=== PATIENT | female | born 1965 | race Caucasian/White ===

== ENCOUNTER 2017-12-10 05:17 | Inpatient (IN) | payer OTHER ==
[~2017-12-10] VITALS: Ht 175.3 cm; Wt 78.7 kg
[2017-12-10] MEDS ORDERED: BUDE10.2 INH (05:26)
[2017-12-10 06:14] LABS: BASOPHILS # (AUTO) 0.06 x10^3/uL (0-0.1); BASOPHILS % (AUTO) 1 % (0-1); EOSINOPHILS # (AUTO) 0.21 x10^3/uL (0-0.4); EOSINOPHILS % (AUTO) 2 % (1-7); LYMPHOCYTES # (AUTO) 2.38 x10^3/uL (1-3.4); LYMPHOCYTES % (AUTO) 23 % (22-44); MD NO; MEAN CORPUSCULAR HEMOGLOBIN 32.5 pg (27.0-34.8); MEAN CORPUSCULAR HGB CONC 33.3 g/dL (32.4-35.8); MEAN CORPUSCULAR VOLUME 97.8 fL (80-100); MEAN PLATELET VOLUME 8.7 fL (7.4-10.4); MONOCYTES # (AUTO) 0.79 x10^3/uL (0.2-0.8); MONOCYTES % (AUTO) 8 % (2-9); NEUTROPHILS # (AUTO) 7.08 x10^3/uL (1.8-6.8); NEUTROPHILS % (AUTO) 67 % (42-75); PLATELET COUNT 334 x10^3/uL (130-400); RED BLOOD COUNT 4.34 x10^6/uL (3.82-5.3); RED CELL DISTRIBUTION WIDTH 13.8 % (9.6-15.2)
[2017-12-10 06:22] LABS: CHLORIDE 108 mmol/L (98-107)
[2017-12-10 06:28] LABS: ALBUMIN 3.9 g/dL (3.4-5.0); ANION GAP 7 mmol/L (5-15); CREATININE 0.86 mg/dL (0.55-1.02)
[2017-12-10 06:52] LABS: TROPONIN I 0.357 ng/mL (0.000-0.045)
[2017-12-10] MEDS ORDERED: ASPIRIN 81 MG TABLET CHEW PO ONE (07:00)
[2017-12-10] MEDS ORDERED: MORPHINE SULFATE 4 MG/ML, 1ML IVPush PRN (07:00)
[2017-12-10] MEDS ORDERED: ASPIRIN 81 MG TABLET CHEW ONE (07:17)
[2017-12-10] MEDS ORDERED: OMNIPAQUE 350 MG/ML, 100ML BOTTLE ONE (07:36)
[2017-12-10] MEDS ORDERED: MIDAZOLAM 1 MG/ML, 5ML ONE (07:38)
[2017-12-10] MEDS ORDERED: FENTANYL PF 100 MCG/2ML ONE (07:38)
[2017-12-10] MEDS ORDERED: TICAGRELOR 90 MG TABLET ONE (07:39)
[2017-12-10] MEDS ORDERED: NITROGLYCERIN 5 MG/ML, 10ML ONE (07:39)
[2017-12-10] MEDS ORDERED: VERAPAMIL 2.5 MG/ML, 2ML ONE (07:39)
[2017-12-10] MEDS ORDERED: BIVALIRUDIN 250 MG ONE (07:39)
[2017-12-10] MEDS ORDERED: HEPARIN 1,000 UNITS/ML, 10ML ONE (07:39)
[2017-12-10] MEDS ORDERED: LIDOCAINE-MPF 2% ,5ML ONE (07:39)
[2017-12-10] MEDS ORDERED: FUROSEMIDE 40 MG/4 ML ONE (08:28)
[2017-12-10] MEDS: FUROSEMIDE 40 MG/4 ML IV SCH (08:30)
[2017-12-10] MEDS ORDERED: DOCUSATE 100 MG CAPSULE PO PRN (09:00)
[2017-12-10] MEDS ORDERED: POLYETHYLENE GLYCOL 17 GM PACKET PO PRN (09:00)
[2017-12-10] MEDS: CARVEDILOL 3.125 MG TABLET PO SCH ×2 (09:00→17:48)
[2017-12-10] MEDS ORDERED: ONDANSETRON 2MG/ML, 2ML IVPush PRN ×2 (09:30→20:28)
[2017-12-10] MEDS ORDERED: BISACODYL 10 MG SUPP PR PRN (09:30)
[2017-12-10] MEDS ORDERED: hydrALAzine 20 MG/ML, 1ML IVPush PRN (09:30)
[2017-12-10] MEDS: LOSARTAN 25MG TABLET PO SCH (09:40)
[2017-12-10 12:43] LABS: AMPHETAMINE SCREEN, URINE Positive (Negative); BARBITURATE SCREEN, URINE Negative (Negative); BENZODIAZEPINE SCREEN, URINE Positive (Negative); CANNABINOID SCREEN, URINE Negative (Negative); COCAINE SCREEN, URINE Negative (Negative); METHADONE SCREEN, URINE Negative (Negative); OPIATE SCREEN, URINE Negative (Negative)
[2017-12-10] MEDS: ENOXAPARIN 40 MG/0.4 ML SQ SCH (16:18)
[2017-12-10] MEDS: ACETAMINOPHEN 325 MG TABLET PO PRN ×3 (17:46→22:43)
[2017-12-10] MEDS ORDERED: ONDANSETRON ODT 4 MG PO PRN (20:30)
[2017-12-10] MEDS: FAMOTIDINE 20 MG TABLET PO SCH (20:35)
[2017-12-10 21:51] VITALS: BP 115/78
[2017-12-11 01:00] VITALS: BP 105/68
[2017-12-11 05:36] LABS: BASOPHILS # (AUTO) 0.06 x10^3/uL (0-0.1); BASOPHILS % (AUTO) 1 % (0-1); EOSINOPHILS # (AUTO) 0.09 x10^3/uL (0-0.4); EOSINOPHILS % (AUTO) 1 % (1-7); LYMPHOCYTES # (AUTO) 2.84 x10^3/uL (1-3.4); LYMPHOCYTES % (AUTO) 21 % (22-44); MD NO; MEAN CORPUSCULAR HEMOGLOBIN 32.6 pg (27.0-34.8); MEAN CORPUSCULAR HGB CONC 33.5 g/dL (32.4-35.8); MEAN CORPUSCULAR VOLUME 97.4 fL (80-100); MONOCYTES # (AUTO) 0.99 x10^3/uL (0.2-0.8); MONOCYTES % (AUTO) 7 % (2-9); NEUTROPHILS # (AUTO) 9.71 x10^3/uL (1.8-6.8); NEUTROPHILS % (AUTO) 71 % (42-75); PLATELET COUNT 298 x10^3/uL (130-400); RED BLOOD COUNT 4.19 x10^6/uL (3.82-5.3); RED CELL DISTRIBUTION WIDTH 13.9 % (9.6-15.2)
[2017-12-11] MEDS: CARVEDILOL 3.125 MG TABLET PO SCH ×2 (06:31→16:08)
[2017-12-11 06:38] LABS: ALBUMIN 3.4 g/dL (3.4-5.0); ANION GAP 7 mmol/L (5-15); CALCIUM 9.2 mg/dL (8.5-10.1); CHLORIDE 105 mmol/L (98-107)
[2017-12-11 06:44] LABS: ALANINE AMINOTRANSFERASE 22 U/L (12-78); ALKALINE PHOSPHATASE 113 U/L (45-117); BILIRUBIN,TOTAL 0.3 mg/dL (0.2-1.0); CHOL/HDL RATIO 3.2; CHOLESTEROL, TOTAL 165 mg/dL (140-239); CREATININE 0.93 mg/dL (0.55-1.02); HDL CHOL % 32 % (28-40); HDL CHOLESTEROL (DIRECT) 52 mg/dL (40-60); LDL CHOLESTEROL,CALCULATED 96 mg/dL (54-169); LDL/HDL RATIO 1.8 (0.5-3.0); TOTAL PROTEIN 7.1 g/dL (6.4-8.2); TRIGLYCERIDES 85 mg/dL (50-200); VLDL CHOLESTEROL 17 mg/dL (0-25)
[2017-12-11] MEDS: LOSARTAN 25MG TABLET PO SCH (08:17)
[2017-12-11] MEDS: FAMOTIDINE 20 MG TABLET PO SCH ×2 (08:17→21:55)
[2017-12-11] MEDS: FUROSEMIDE 40 MG/4 ML IV SCH (08:18)
[2017-12-11 09:43] VITALS: BP 111/74
[2017-12-11 15:30] VITALS: BP 107/69
[2017-12-11] MEDS: ENOXAPARIN 40 MG/0.4 ML SQ SCH (16:08)
[2017-12-11 19:23] VITALS: BP 99/65
[2017-12-12 00:22] VITALS: BP 102/69
[2017-12-12] MEDS ORDERED: IBUPROFEN 200 MG TABLET PO ONE (00:30)
[2017-12-12] MEDS: ACETAMINOPHEN 325 MG TABLET PO PRN (01:56)
[2017-12-12] MEDS: CARVEDILOL 3.125 MG TABLET PO SCH (06:24)
[2017-12-12 07:52] VITALS: BP 110/75
[2017-12-12] MEDS: FAMOTIDINE 20 MG TABLET PO SCH (08:10)
[2017-12-12] MEDS: LOSARTAN 25MG TABLET PO SCH (08:11)
[2017-12-12] MEDS: FUROSEMIDE 40 MG/4 ML IV SCH (08:11)
[2017-12-12 14:55] VITALS: BP 95/62
[2017-12-12] MEDS: ENOXAPARIN 40 MG/0.4 ML SQ SCH (16:00)
[2017-12-12] MEDS ORDERED: LOSA25TA2 PO (16:22)
[2017-12-12] MEDS ORDERED: CARV3.1212 PO (16:22)
== END 2017-12-12 18:10 | disposition home or self-care (01) | DRG 286 ==
LOC: ED 08:00 → EDIP 08:04 → CCU 08:37 → 5SO 21:45
PROVIDERS: ADMIT Internal Medicine; ATTEND Internal Medicine
PROC: 4A023N7 Measurement of Cardiac Sampling and Pressure, Left Heart, Percutaneous Approach (ICD-10-PCS; principal; 2017-12-10)
PROC: B2111ZZ Fluoroscopy of Multiple Coronary Arteries using Low Osmolar Contrast (ICD-10-PCS; 2017-12-10)
PROC: B2151ZZ Fluoroscopy of Left Heart using Low Osmolar Contrast (ICD-10-PCS; 2017-12-10)
DX: I25.10 Atherosclerotic heart disease of native coronary artery without angina pectoris (principal); I50.21 Acute systolic (congestive) heart failure; I47.2 Ventricular tachycardia; I42.9 Cardiomyopathy, unspecified; I11.0 Hypertensive heart disease with heart failure; F15.10 Other stimulant abuse, uncomplicated; J45.909 Unspecified asthma, uncomplicated; F32.9 Major depressive disorder, single episode, unspecified; M19.90 Unspecified osteoarthritis, unspecified site; Z87.01 Personal history of pneumonia (recurrent); Z87.891 Personal history of nicotine dependence
CPT/HCPCS: 36415; 71045; 71275; 80048; 80053; 80061; 80307; 82040; 83735; 84484; 85025; 85379; 87081; 93005; 93306; 93458; 99156; 99291; C1760; C1894; J0583; J1644; J1650; J1940; J2250; J3010; J3490; Q9967; J7512

== ENCOUNTER 2017-12-14 02:09 | Emergency (ER) | payer OTHER ==
[~2017-12-14] VITALS: Ht 175.3 cm; Wt 79.4 kg
[~2017-12-14 02:09] MED LIST: BUDE10.2 INH; CARV3.1212 PO; LOSA25TA2 PO
[2017-12-14] MEDS ORDERED: FUROSEMIDE 20 MG TABLET ONE (02:47)
[2017-12-14] MEDS ORDERED: POTASSIUM CHLORIDE 20 MEQ TAB.ER.PRT ONE (02:47)
[2017-12-14] MEDS ORDERED: POTASSIUM CHLORIDE 20 MEQ TAB.ER.PRT PO ONE (03:00)
[2017-12-14 03:24] VITALS: BP 114/80
[2017-12-14] MEDS ORDERED: FUROSEMIDE 20 MG TABLET PO SCH (09:00)
== END 2017-12-14 03:33 | disposition home or self-care (01) ==
LOC: ED 03:31
DX: I11.0 Hypertensive heart disease with heart failure (principal); I50.9 Heart failure, unspecified; Z76.0 Encounter for issue of repeat prescription; M19.90 Unspecified osteoarthritis, unspecified site; J45.909 Unspecified asthma, uncomplicated
CPT/HCPCS: 93005; 99283

== ENCOUNTER 2017-12-20 04:33 | Emergency (ER) | payer OTHER ==
[~2017-12-20] VITALS: Ht 175.3 cm; Wt 81.3 kg
[2017-12-20 04:36] VITALS: BP 113/78
== END 2017-12-20 06:17 | disposition home or self-care (01) ==
LOC: ED 05:49
DX: M70.21 Olecranon bursitis, right elbow (principal); Z87.891 Personal history of nicotine dependence
CPT/HCPCS: 99284

== ENCOUNTER 2017-12-21 14:36 | Emergency (ER) | payer OTHER ==
[~2017-12-21] VITALS: Ht 175.3 cm; Wt 82.6 kg
[2017-12-21 14:43] VITALS: BP 102/67
[2017-12-21] MEDS ORDERED: CLINDAMYCIN 150 MG/ML, 6ML IM ONE (15:30)
== END 2017-12-21 16:29 | disposition home or self-care (01) ==
LOC: ED 16:00
DX: M70.21 Olecranon bursitis, right elbow (principal); M19.90 Unspecified osteoarthritis, unspecified site; J45.909 Unspecified asthma, uncomplicated; I50.9 Heart failure, unspecified; I11.0 Hypertensive heart disease with heart failure
CPT/HCPCS: 96372; 99283

== ENCOUNTER 2018-02-27 11:40 | Inpatient (IN) | payer OTHER ==
[~2018-02-27] VITALS: Ht 175.3 cm; Wt 77.9 kg
[2018-02-27] MEDS ORDERED: ASPIRIN 81 MG TABLET CHEW PO ONE (12:00)
[2018-02-27 12:32] LABS: BASOPHILS # (AUTO) 0.03 x10^3/uL (0-0.1); BASOPHILS % (AUTO) 0 % (0-1); EOSINOPHILS # (AUTO) 0.22 x10^3/uL (0-0.4); EOSINOPHILS % (AUTO) 3 % (1-7); LYMPHOCYTES # (AUTO) 1.79 x10^3/uL (1-3.4); LYMPHOCYTES % (AUTO) 23 % (22-44); MD NO; MEAN CORPUSCULAR HEMOGLOBIN 32.6 pg (27.0-34.8); MEAN CORPUSCULAR HGB CONC 34.1 g/dL (32.4-35.8); MEAN CORPUSCULAR VOLUME 95.3 fL (80-100); MEAN PLATELET VOLUME 8.6 fL (7.4-10.4); MONOCYTES # (AUTO) 0.48 x10^3/uL (0.2-0.8); MONOCYTES % (AUTO) 6 % (2-9); NEUTROPHILS # (AUTO) 5.16 x10^3/uL (1.8-6.8); NEUTROPHILS % (AUTO) 67 % (42-75); PLATELET COUNT 333 x10^3/uL (130-400); RED BLOOD COUNT 4.29 x10^6/uL (3.82-5.3); RED CELL DISTRIBUTION WIDTH 15.1 % (9.6-15.2)
[2018-02-27 12:43] LABS: ANION GAP 8 mmol/L (5-15); CHLORIDE 101 mmol/L (98-107)
[2018-02-27 12:48] LABS: ALANINE AMINOTRANSFERASE 25 U/L (12-78); ALKALINE PHOSPHATASE 100 U/L (45-117); BILIRUBIN,TOTAL 0.4 mg/dL (0.2-1.0); TOTAL PROTEIN 7.9 g/dL (6.4-8.2); TROPONIN I 0.039 ng/mL (0.000-0.045)
[2018-02-27] MEDS ORDERED: TRIA1TAB5 PO (12:51)
[2018-02-27] MEDS ORDERED: ASPIRIN 81 MG TABLET CHEW ONE (12:54)
[2018-02-27 15:11] VITALS: BP 127/85
[2018-02-27 15:59] LABS: FREE T4 (FREE THYROXINE) 1.1 ng/dL (0.76-1.46); THYROID STIMULATING HORMONE 1.12 mIU/L (0.358-3.740)
[2018-02-27] MEDS ORDERED: ONDANSETRON ODT 4 MG PO PRN (16:00)
[2018-02-27] MEDS ORDERED: ACETAMINOPHEN 325 MG TABLET PO PRN (16:00)
[2018-02-27] MEDS ORDERED: HYDROcodone/APAP 5/325 TABLET PO PRN (16:00)
[2018-02-27] MEDS ORDERED: ZOLPIDEM 5MG TABLET PO PRN (16:00)
[2018-02-27] MEDS ORDERED: LORazepam 1MG TABLET PO PRN (16:00)
[2018-02-27] MEDS ORDERED: BISACODYL 10 MG SUPP PR PRN (16:00)
[2018-02-27] MEDS ORDERED: ONDANSETRON 2MG/ML, 2ML IVPush PRN (16:00)
[2018-02-27 18:26] LABS: TROPONIN I 0.038 ng/mL (0.000-0.045)
[2018-02-27 19:43] VITALS: BP 107/71
[2018-02-27] MEDS: ENOXAPARIN 30 MG/0.3 ML SQ SCH (21:01)
[2018-02-27] MEDS: SODIUM CHLORIDE FLUSH 10ML SYR IVF SCH (21:07)
[2018-02-28 00:10] LABS: MICROSCOPIC NOT IND
[2018-02-28 00:13] LABS: CULTURE INDICATED? NO
[2018-02-28 00:21] LABS: AMPHETAMINE SCREEN, URINE Negative (Negative); BARBITURATE SCREEN, URINE Negative (Negative); BENZODIAZEPINE SCREEN, URINE Negative (Negative); CANNABINOID SCREEN, URINE Negative (Negative); COCAINE SCREEN, URINE Negative (Negative); METHADONE SCREEN, URINE Negative (Negative); OPIATE SCREEN, URINE Negative (Negative)
[2018-02-28 00:49] LABS: TROPONIN I 0.039 ng/mL (0.000-0.045)
[2018-02-28 02:12] VITALS: BP 107/60
[2018-02-28 02:15] VITALS: BP 100/63
[2018-02-28 02:16] VITALS: BP 111/68
[2018-02-28 05:21] LABS: CHLORIDE 103 mmol/L (98-107)
[2018-02-28 05:22] LABS: BASOPHILS # (AUTO) 0.06 x10^3/uL (0-0.1); BASOPHILS % (AUTO) 1 % (0-1); EOSINOPHILS % (AUTO) 3 % (1-7); LYMPHOCYTES # (AUTO) 2.57 x10^3/uL (1-3.4); LYMPHOCYTES % (AUTO) 39 % (22-44); MD NO; MEAN CORPUSCULAR HEMOGLOBIN 32.3 pg (27.0-34.8); MEAN CORPUSCULAR HGB CONC 34.1 g/dL (32.4-35.8); MEAN CORPUSCULAR VOLUME 94.7 fL (80-100); MONOCYTES # (AUTO) 0.75 x10^3/uL (0.2-0.8); MONOCYTES % (AUTO) 11 % (2-9); NEUTROPHILS # (AUTO) 3.08 x10^3/uL (1.8-6.8); NEUTROPHILS % (AUTO) 46 % (42-75); PLATELET COUNT 241 x10^3/uL (130-400); RED BLOOD COUNT 3.87 x10^6/uL (3.82-5.3); RED CELL DISTRIBUTION WIDTH 14.7 % (9.6-15.2)
[2018-02-28 05:27] LABS: ALANINE AMINOTRANSFERASE 23 U/L (12-78); ALBUMIN 3.4 g/dL (3.4-5.0); ALKALINE PHOSPHATASE 86 U/L (45-117); ANION GAP 9 mmol/L (5-15); BILIRUBIN,TOTAL 0.4 mg/dL (0.2-1.0); CREATININE 0.81 mg/dL (0.55-1.02); TOTAL PROTEIN 6.7 g/dL (6.4-8.2)
[2018-02-28] MEDS: ENOXAPARIN 30 MG/0.3 ML SQ SCH (08:00)
[2018-02-28] MEDS ORDERED: FLUTICASONE/VILANTEROL 200-25MCG/INH INH SCH (09:00)
[2018-02-28 09:03] VITALS: BP 110/70
[2018-02-28] MEDS: SODIUM CHLORIDE FLUSH 10ML SYR IVF SCH (09:07)
[2018-02-28 11:14] VITALS: BP_SYST 104; BP_SYST 108; BP_DIAS 67
[2018-02-28 11:15] VITALS: BP 107/72
== END 2018-02-28 15:46 | disposition home or self-care (01) | DRG 206 ==
LOC: ED 13:25 → EDIP 13:53 → 5SO 14:58
PROVIDERS: ADMIT Hospitalist; ATTEND Hospitalist
DX: M94.0 Chondrocostal junction syndrome [Tietze] (principal); I42.9 Cardiomyopathy, unspecified; R00.1 Bradycardia, unspecified; I10 Essential (primary) hypertension; T46.5X5A Adverse effect of other antihypertensive drugs, initial encounter; F15.11 Other stimulant abuse, in remission; F17.210 Nicotine dependence, cigarettes, uncomplicated; I11.0 Hypertensive heart disease with heart failure; I25.5 Ischemic cardiomyopathy; I50.9 Heart failure, unspecified; J45.909 Unspecified asthma, uncomplicated; M79.7 Fibromyalgia; M19.90 Unspecified osteoarthritis, unspecified site; Z88.8 Allergy status to other drugs, medicaments and biological substances; Y92.89 Other specified places as the place of occurrence of the external cause; Z91.013 Allergy to seafood; Z91.041 Radiographic dye allergy status
CPT/HCPCS: 36415; 71046; 80053; 80307; 81003; 83735; 83880; 84439; 84443; 84484; 85025; 93005; 93306; 99285; J1650

== ENCOUNTER 2018-06-06 17:55 | Emergency (ER) | payer OTHER ==
[~2018-06-06] VITALS: Ht 175.3 cm; Wt 85.3 kg
[~2018-06-06 17:55] MED LIST changes: +TRIA1TAB5 PO
[2018-06-06] MEDS ORDERED: BICILLIN-LA 1,200,000 UNITS/2 ML IM ONE (19:00)
[2018-06-06] MEDS ORDERED: DEXAMETHASONE 4 MG TABLET PO ONE (19:00)
[2018-06-06] MEDS ORDERED: DEXAMETHASONE 4 MG TABLET ONE (19:02)
[2018-06-06 19:22] VITALS: BP 122/74
== END 2018-06-06 19:26 | disposition home or self-care (01) ==
LOC: ED 18:34
DX: J02.0 Streptococcal pharyngitis (principal); F17.200 Nicotine dependence, unspecified, uncomplicated; I11.0 Hypertensive heart disease with heart failure; I50.9 Heart failure, unspecified; J45.909 Unspecified asthma, uncomplicated
CPT/HCPCS: 96372; 99283; J0561

== ENCOUNTER 2018-06-07 20:41 | Observation (INO) | payer OTHER ==
[~2018-06-07] VITALS: Ht 175.3 cm; Wt 87.1 kg
[2018-06-07] MEDS ORDERED: ASPIRIN 81 MG TABLET CHEW PO ONE (21:00)
[2018-06-07] MEDS ORDERED: SODIUM CHLORIDE FLUSH 10ML SYR IVF ONE (21:00)
[2018-06-07] MEDS ORDERED: ASPIRIN 81 MG TABLET CHEW ONE (21:28)
[2018-06-07 21:31] LABS: MEAN CORPUSCULAR HGB CONC 34.6 g/dL (32.4-35.8); MEAN CORPUSCULAR VOLUME 98.3 fL (80-100); PLATELET COUNT 322 x10^3/uL (130-400); RED BLOOD COUNT 4.16 x10^6/uL (3.82-5.3); RED CELL DISTRIBUTION WIDTH 12.4 % (9.6-15.2)
[2018-06-07 21:38] LABS: ALANINE AMINOTRANSFERASE 21 U/L (12-78); ALBUMIN 3.7 g/dL (3.4-5.0); ANION GAP 10 mmol/L (5-15); CHLORIDE 103 mmol/L (98-107); CREATININE 0.93 mg/dL (0.55-1.02)
[2018-06-07 21:43] LABS: ALKALINE PHOSPHATASE 104 U/L (45-117); BILIRUBIN,TOTAL 0.2 mg/dL (0.2-1.0); TOTAL PROTEIN 7.4 g/dL (6.4-8.2); TROPONIN I 0.027 ng/mL (0.000-0.045)
[2018-06-07 21:49] LABS: BASOPHILS # (AUTO) 0.05 x10^3/uL (0-0.1); BASOPHILS % (AUTO) 0 % (0-1); EOSINOPHILS # (AUTO) 0.05 x10^3/uL (0-0.4); EOSINOPHILS % (AUTO) 0 % (1-7); LYMPHOCYTES % (AUTO) 14 % (22-44); MD SCAN; MONOCYTES # (AUTO) 1.28 x10^3/uL (0.2-0.8); MONOCYTES % (AUTO) 6 % (2-9); NEUTROPHILS # (AUTO) 16.26 x10^3/uL (1.8-6.8); NEUTROPHILS % (AUTO) 79 % (42-75)
[2018-06-07] MEDS ORDERED: SODIUM CHLORIDE 0.9% 1,000 ML IV SCH (22:58)
[2018-06-07] MEDS ORDERED: ONDANSETRON 2MG/ML, 2ML IVPush PRN (23:00)
[2018-06-07] MEDS ORDERED: DOCUSATE 100 MG CAPSULE PO PRN (23:00)
[2018-06-07] MEDS ORDERED: hydrALAzine 20 MG/ML, 1ML IVPush PRN (23:00)
[2018-06-07] MEDS ORDERED: NITROGLYCERIN 0.4 MG BOTTLE (25 TABS) SL PRN (23:00)
[2018-06-07] MEDS ORDERED: ONDANSETRON ODT 4 MG PO PRN (23:00)
[2018-06-07] MEDS ORDERED: OXYcodone IR 5MG TABLET PO PRN (23:00)
[2018-06-07] MEDS ORDERED: ACETAMINOPHEN 325 MG TABLET PO PRN (23:00)
[2018-06-07] MEDS ORDERED: BISACODYL 10 MG SUPP PR PRN (23:00)
[2018-06-07] MEDS ORDERED: FAMOTIDINE 20 MG/2 ML IVPush SCH (23:00)
[2018-06-07] MEDS ORDERED: morphine SULFATE 10 MG/ML, 1ML IVPush PRN (23:00)
[2018-06-07] MEDS ORDERED: LABETALOL 5MG/ML, 20ML IVPush PRN (23:00)
[2018-06-07] MEDS ORDERED: POLYETHYLENE GLYCOL 17 GM PACKET PO PRN (23:00)
[2018-06-07] MEDS ORDERED: PROMETHAZINE 25 MG/ML, 1ML IM PRN (23:00)
[2018-06-07 23:29] LABS: HEMOGLOBIN A1C 5.8 % (4.2-6.3)
[2018-06-07 23:30] LABS: FREE T4 (FREE THYROXINE) 0.98 ng/dL (0.76-1.46); THYROID STIMULATING HORMONE 0.997 mIU/L (0.358-3.740)
[2018-06-07] MEDS ORDERED: POTASSIUM CHLORIDE 20 MEQ TAB.ER.PRT PO ONE (23:30)
[2018-06-07 23:36] VITALS: BP 120/75
[2018-06-08] MEDS ORDERED: FAMOTIDINE 20 MG TABLET ONE (00:02)
[2018-06-08] MEDS: HEPARIN 5,000 UNITS/ML, 1ML SQ SCH ×2 (00:08→09:32)
[2018-06-08] MEDS: FAMOTIDINE 20 MG TABLET PO SCH ×2 (00:08→09:32)
[2018-06-08 00:23] VITALS: BP 120/75
[2018-06-08 02:49] LABS: BASOPHILS # (AUTO) 0.01 x10^3/uL (0-0.1); BASOPHILS % (AUTO) 0 % (0-1); EOSINOPHILS # (AUTO) 0.07 x10^3/uL (0-0.4); EOSINOPHILS % (AUTO) 1 % (1-7); LYMPHOCYTES # (AUTO) 3.11 x10^3/uL (1-3.4); LYMPHOCYTES % (AUTO) 20 % (22-44); MD NO; MEAN CORPUSCULAR HGB CONC 34.6 g/dL (32.4-35.8); MEAN CORPUSCULAR VOLUME 98.1 fL (80-100); MEAN PLATELET VOLUME 8.6 fL (7.4-10.4); MONOCYTES # (AUTO) 0.84 x10^3/uL (0.2-0.8); MONOCYTES % (AUTO) 6 % (2-9); NEUTROPHILS # (AUTO) 11.29 x10^3/uL (1.8-6.8); NEUTROPHILS % (AUTO) 74 % (42-75); PLATELET COUNT 257 x10^3/uL (130-400); RED BLOOD COUNT 3.84 x10^6/uL (3.82-5.3); RED CELL DISTRIBUTION WIDTH 12.7 % (9.6-15.2)
[2018-06-08 02:54] LABS: ALANINE AMINOTRANSFERASE 19 U/L (12-78); ALBUMIN 3.4 g/dL (3.4-5.0); ANION GAP 7 mmol/L (5-15); CALCIUM 8.3 mg/dL (8.5-10.1); CHLORIDE 107 mmol/L (98-107); CHOLESTEROL, TOTAL 160 mg/dL (140-239)
[2018-06-08 02:59] LABS: ALKALINE PHOSPHATASE 82 U/L (45-117); BILIRUBIN,TOTAL 0.2 mg/dL (0.2-1.0); CHOL/HDL RATIO 2.6; HDL CHOL % 38 % (28-40); HDL CHOLESTEROL (DIRECT) 61 mg/dL (40-60); LDL CHOLESTEROL,CALCULATED 89 mg/dL (54-169); LDL/HDL RATIO 1.5 (0.5-3.0); TOTAL PROTEIN 6.7 g/dL (6.4-8.2); TRIGLYCERIDES 48 mg/dL (50-200); TROPONIN I 0.023 ng/mL (0.000-0.045); VLDL CHOLESTEROL 10 mg/dL (0-25)
[2018-06-08] MEDS ORDERED: ASPIRIN 325 MG TABLET EC PO SCH (06:00)
[2018-06-08 06:04] LABS: MICROSCOPIC NOT IND
[2018-06-08 06:07] LABS: CULTURE INDICATED? NO
[2018-06-08 07:29] VITALS: BP 90/58
[2018-06-08] MEDS ORDERED: REGADENOSON 0.4 MG/5 ML SYRINGE ONE (08:28)
[2018-06-08] MEDS ORDERED: TRIAMTERENE/HCTZ 75/50MG TABLET PO SCH (09:00)
[2018-06-08] MEDS ORDERED: TEMPLATE NON-FORMULARY MED. (Budesonide/Formoterol Fumarate (Symbicort 160-4.5 Mcg Inhaler INH SCH ×3 (09:00→12:00)
[2018-06-08 09:30] VITALS: BP 95/60
[2018-06-08 09:35] LABS: TROPONIN I 0.029 ng/mL (0.000-0.045)
[2018-06-08 11:37] VITALS: BP 115/73
[2018-06-08 14:00] VITALS: BP 102/64
[2018-06-08] MEDS ORDERED: ASPI-650 PO (15:35)
[2018-06-08] MEDS ORDERED: ACET-1600 PO (15:35)
== END 2018-06-08 16:06 | disposition home or self-care (01) ==
LOC: ED 23:20 → INTOOBSV 23:25 → 5SO 23:25
PROVIDERS: ADMIT Internal Medicine; ATTEND Internal Medicine
DX: R07.9 Chest pain, unspecified (principal); R06.00 Dyspnea, unspecified; D72.829 Elevated white blood cell count, unspecified; E87.6 Hypokalemia; I50.22 Chronic systolic (congestive) heart failure; I11.0 Hypertensive heart disease with heart failure; F17.210 Nicotine dependence, cigarettes, uncomplicated; J44.9 Chronic obstructive pulmonary disease, unspecified; M79.7 Fibromyalgia
CPT/HCPCS: 36415; 71045; 78452; 80053; 80061; 81003; 83036; 83735; 83880; 84439; 84443; 84484; 85025; 93005; 93017; 96360; 96361; 96372; 99285; A9502; C9898; G0378; J1644; J2785; J7030

== ENCOUNTER 2018-06-29 18:25 | Emergency (ER) | payer OTHER ==
[~2018-06-29] VITALS: Ht 175.3 cm; Wt 82.0 kg
[~2018-06-29 18:25] MED LIST changes: +ACET-1600 PO; +ASPI-650 PO
[2018-06-29 19:01] LABS: BASOPHILS # (AUTO) 0.06 x10^3/uL (0-0.1); BASOPHILS % (AUTO) 1 % (0-1); EOSINOPHILS # (AUTO) 0.24 x10^3/uL (0-0.4); EOSINOPHILS % (AUTO) 2 % (1-7); LYMPHOCYTES # (AUTO) 2.85 x10^3/uL (1-3.4); LYMPHOCYTES % (AUTO) 26 % (22-44); MD NO; MEAN CORPUSCULAR HGB CONC 34.4 g/dL (32.4-35.8); MEAN CORPUSCULAR VOLUME 98.8 fL (80-100); MEAN PLATELET VOLUME 8.8 fL (7.4-10.4); MONOCYTES # (AUTO) 0.83 x10^3/uL (0.2-0.8); MONOCYTES % (AUTO) 8 % (2-9); NEUTROPHILS # (AUTO) 7.06 x10^3/uL (1.8-6.8); NEUTROPHILS % (AUTO) 64 % (42-75); PLATELET COUNT 304 x10^3/uL (130-400); RED BLOOD COUNT 4.21 x10^6/uL (3.82-5.3); RED CELL DISTRIBUTION WIDTH 12.7 % (9.6-15.2)
[2018-06-29 19:13] LABS: ALANINE AMINOTRANSFERASE 23 U/L (12-78); ALBUMIN 3.7 g/dL (3.4-5.0); ANION GAP 6 mmol/L (5-15); CALCIUM 8.7 mg/dL (8.5-10.1); CHLORIDE 106 mmol/L (98-107); CREATININE 1.19 mg/dL (0.55-1.02)
[2018-06-29 19:18] LABS: ALKALINE PHOSPHATASE 107 U/L (45-117); BILIRUBIN,TOTAL 0.2 mg/dL (0.2-1.0); TOTAL PROTEIN 7.5 g/dL (6.4-8.2); TROPONIN I 0.028 ng/mL (0.000-0.045)
[2018-06-29 19:24] VITALS: BP 102/69
== END 2018-06-29 20:54 | disposition home or self-care (01) ==
LOC: ED 20:48
DX: R07.89 Other chest pain (principal); I25.2 Old myocardial infarction; I11.0 Hypertensive heart disease with heart failure; I50.9 Heart failure, unspecified; M19.90 Unspecified osteoarthritis, unspecified site; J45.909 Unspecified asthma, uncomplicated; F17.210 Nicotine dependence, cigarettes, uncomplicated
CPT/HCPCS: 36415; 71045; 80053; 83880; 84439; 84443; 84484; 85025; 93005; 99285